=== PATIENT | female | born 1960 | race Hispanic/Latino ===

== ENCOUNTER 2017-10-06 08:42 | Outpatient (CLI) | payer OTHER ==
--- NOTE | 2017-10-06 15:43 | MMO ---
MAMMOGRAM DIGITAL SCREENING BILATERAL: DATE: 10/06/2017 HISTORY: A 57-year-old female for routine bilateral screening mammogram. COMPARISON: 10/02/2016, 07/12/2015, 06/29/2014 TECHNIQUE: Digital mammographic views. Computer-aided detection (CAD) utilized. FINDINGS: There are scattered areas of fibroglandular density. There is no evidence of suspicious mass, suspicious calcifications, or architectural distortion. The re is no significant interval change since the prior mammogram. IMPRESSION: 1) BIRADS 1- Negative. 2) Recommendation: routine bilateral annual screening mammogram (unless the patient develops suspicio us clinical findings that would warrant earlier imaging follow up). phillip [] POS: LOLIS
== END 2017-10-06 08:43 | disposition home or self-care (01) ==
LOC: SCSMAMMO 08:42
PROVIDERS: ATTEND Family Medicine
DX: Z12.31 Encounter for screening mammogram for malignant neoplasm of breast (principal)
CPT/HCPCS: 77067